=== PATIENT | female | born 1950 | race Hispanic/Latino ===

== ENCOUNTER 2020-10-26 13:09 | Inpatient (IN) | payer OTHER ==
[~2020-10-26] VITALS: Ht 172.7 cm; Wt 86.2 kg
[2020-10-26 13:23] VITALS: BP 129/50
[2020-10-26 13:37] LABS: BASOPHILS % (AUTO) 0.1 % (0.0-5.0); LYMPHOCYTES % (AUTO) 6.5 % (21.0-51.0); MEAN CORPUSCULAR HEMOGLOBIN 29.2 pg (27.0-33.0); MEAN CORPUSCULAR HGB CONC 34.1 g/dL (32.0-36.0); MEAN CORPUSCULAR VOLUME 85.8 fL (79-99); MONOCYTES % (AUTO) 3.5 % (3.0-13.0); NEUTROPHILS % (AUTO) 89.1 % (40.0-77.0); PLATELET COUNT (AUTO) 157 K/uL (130-400); RED BLOOD CELL COUNT(AUTO) 4.31 MIL/uL (4.00-5.50); RED CELL DISTRIBUTION WIDTH 13.4 % (11.0-15.5); WHITE BLOOD COUNT (AUTO) 9.2 K/uL (4.8-10.8)
[2020-10-26 13:56] LABS: CARBON DIOXIDE 22 mmol/L (21-32); CHLORIDE 99 mmol/L (101-111); CREATININE 1.4 mg/dL (0.5-1.5); GLOMERULAR FILTR. RATE CALC 40 mL/min (>60); GLUCOSE,RANDOM 148 mg/dL (70-105); POTASSIUM 3.9 mmol/L (3.5-5.1); SODIUM SERUM 134 mmol/L (136-145); UREA NITROGEN, BLOOD 24 mg/dL (7-18)
[2020-10-26] MEDS: ALBUTEROL INHALER 90MCG/INH IH SCH ×2 (14:00→19:50)
[2020-10-26] MEDS ORDERED: SOLU-MEDROL 125MG VIAL IVP ONE (14:00)
[2020-10-26] MEDS ORDERED: FAMOTIDINE 20MG VIAL IV ONE ×2 (14:00→17:26)
[2020-10-26 14:08] LABS: ALANINE AMINOTRANSFERASE 21 U/L (12-78); ALBUMIN 2.4 g/dL (3.5-5.0); ASPARTATE AMINOTRANSFERASE 29 U/L (10-37); BILIRUBIN,TOTAL 0.8 mg/dL (0.2-1.0); CREATINE KINASE, TOTAL 93 U/L (21-232); MYOGLOBIN 118 ng/mL (10-92); TOTAL PROTEIN, SERUM 7.7 g/dL (6.0-8.3); TROPONIN I < 0.04 ng/mL (0.00-0.06)
[2020-10-26 14:21] VITALS: BP 125/50
[2020-10-26] MEDS: AZITHROMYCIN 500MG VIAL IVPB SCH (17:00)
[2020-10-26] MEDS: 0.9% NACL 250ML IVPB SCH (17:00)
[2020-10-26 17:18] VITALS: BP 116/57
[2020-10-26] MEDS ORDERED: SOLU-MEDROL 125MG VIAL ONE (17:25)
[2020-10-26] MEDS ORDERED: AZITHROMYCIN 500MG+NS 250ML 250 ML IV ONE (17:25)
[2020-10-26] MEDS ORDERED: ENOXAPARIN SODIUM 100 MG/1 ML SQ ONE (17:25)
[2020-10-26 17:48] VITALS: BP 129/48
[2020-10-26] MEDS: ENOXAPARIN SODIUM 100 MG/1 ML SQ SCH (19:50)
[2020-10-26 20:24] VITALS: BP 128/55
[2020-10-26 23:48] VITALS: BP 112/57
[2020-10-27] VITALS (9 sets, daily range): BP systolic 116–127; BP diastolic 51–66
[2020-10-27] MEDS: ALBUTEROL INHALER 90MCG/INH IH SCH ×4 (02:00→20:21)
[2020-10-27] MEDS ORDERED: NITROGLYCERIN 0.4 MG SL TAB SL PRN (06:00)
[2020-10-27] MEDS ORDERED: SOLU-MEDROL 125MG VIAL IV SCH (06:00)
[2020-10-27] MEDS ORDERED: ACETAMINOPHEN 325 MG TAB PO PRN (06:00)
[2020-10-27] MEDS ORDERED: LEVOFLOXACIN 500 MG/D5W 100 ML 100 ML IV SCH ×2 (06:00→07:00)
[2020-10-27] MEDS ORDERED: ONDANSETRON 4MG INJ IV PRN (06:00)
[2020-10-27] MEDS ORDERED: MAG/ALUM/SIMETH 30 ML UDCUP PO PRN (06:00)
[2020-10-27] MEDS ORDERED: LACTULOSE 20 GM/30 ML UDCUP PO PRN (06:00)
[2020-10-27 06:38] LABS: ABG OXYGEN SATURATION 92.4 % (95.0-99.0); ABG PCO2 27 mmHg (32-45)
[2020-10-27] MEDS: DOXYCYCLINE 100MG+NS 250ML IV SCH ×2 (06:46→18:00)
[2020-10-27] MEDS ORDERED: FUROSEMIDE 20MG VIAL IV SCH (08:30)
[2020-10-27 08:33] LABS: HEMATOCRIT 34.4 % (36-48); MEAN CORPUSCULAR HEMOGLOBIN 28.9 pg (27.0-33.0); MEAN CORPUSCULAR HGB CONC 33.1 g/dL (32.0-36.0); MEAN CORPUSCULAR VOLUME 87.1 fL (79-99); RED BLOOD CELL COUNT(AUTO) 3.95 MIL/uL (4.00-5.50); RED CELL DISTRIBUTION WIDTH 13.3 % (11.0-15.5); WHITE BLOOD COUNT (AUTO) 7.4 K/uL (4.8-10.8)
[2020-10-27 08:39] LABS: CARBON DIOXIDE 23 mmol/L (21-32); CHLORIDE 99 mmol/L (101-111); CREATININE 1.4 mg/dL (0.5-1.5); GLOMERULAR FILTR. RATE CALC 40 mL/min (>60); GLUCOSE,RANDOM 210 mg/dL (70-105); POTASSIUM 4.3 mmol/L (3.5-5.1); SODIUM SERUM 135 mmol/L (136-145); UREA NITROGEN, BLOOD 35 mg/dL (7-18)
[2020-10-27 08:48] LABS: AMMONIA < 3 umol/L (11-32); CREATINE KINASE, TOTAL 96 U/L (21-232); PHOSPHORUS 4.5 mg/dL (2.5-4.9)
[2020-10-27] MEDS: FAMOTIDINE 20MG VIAL IV SCH (09:43)
[2020-10-27] MEDS: BENZONATATE 100 MG CAPSULE PO SCH ×3 (09:43→21:38)
[2020-10-27] MEDS: ENOXAPARIN SODIUM 100 MG/1 ML SQ SCH ×2 (09:44→21:39)
[2020-10-27] MEDS ORDERED: PHARMACY COMMUNICATION MISC SCH ×2 (10:30)
[2020-10-27] MEDS ORDERED: LISI40TA9 PO (11:37)
[2020-10-27] MEDS ORDERED: HYDR200T4 PO (11:37)
[2020-10-27] MEDS ORDERED: ESCI-8 PO (11:37)
[2020-10-27] MEDS ORDERED: OMEP40CA21 PO (11:37)
[2020-10-27] MEDS ORDERED: HYDR25TA PO (11:37)
[2020-10-27] MEDS ORDERED: LACT10SO76 PO (11:37)
[2020-10-27] MEDS ORDERED: LINA290C PO (11:37)
[2020-10-27] MEDS ORDERED: RIFA550T PO (11:37)
[2020-10-27] MEDS ORDERED: GABA300C PO ×2 (11:37)
[2020-10-27 13:41] LABS: APPEARANCE,URINE Cloudy (CLEAR); BILIRUBIN,URINE Negative (NEGATIVE); COLOR,URINE Yellow (YELLOW); GLUCOSE, URINE (UA) TRACE mg/dL (NEGATIVE); KETONES,URINE Negative (NEGATIVE); LEUKOCYTE ESTERASE ,URINE Negative (NEGATIVE); NITRATE,URINE Negative (NEGATIVE); OCCULT BLOOD,URINE Negative (NEGATIVE); PROTEIN,URINE Negative (NEGATIVE); UROBILINOGEN,URINE 0.2 mg/dL (0.2-1.0)
[2020-10-27] MEDS ORDERED: FENOFIBRATE NANOCRYSTALLIZED 145 MG TAB PO SCH (13:55)
[2020-10-27 14:08] LABS: BACTERIA,URINE Rare /HPF (None Seen); MUCUS,URINE Rare LPF (None Seen); RBC,URINE 0-1 /HPF (0-1); SQUAMOUS EPITHELIAL CELL,UR Rare /HPF (0-2); WBC,URINE 0-1 /HPF (0-1)
[2020-10-27] MEDS: 0.9% NACL 250ML IVPB SCH (14:43)
[2020-10-27] MEDS: AZITHROMYCIN 500MG VIAL IVPB SCH (14:43)
[2020-10-27] MEDS: SOLU-MEDROL 125MG VIAL IV SCH ×2 (14:46→21:38)
[2020-10-27] MEDS ORDERED: REMDESIVIR (EUA) 520 200 MG in 0.9% NACL 250ML 250 ML IV ONE (15:00)
[2020-10-27] MEDS ORDERED: COMPOUND IV REFRIGERATED 1 EACH IVSOLN MISC PRN (15:00)
[2020-10-28] MEDS: ALBUTEROL INHALER 90MCG/INH IH SCH ×4 (01:24→20:28)
[2020-10-28 04:00] VITALS: BP 129/72
[2020-10-28 04:27] LABS: ABG BASE EXCESS -3.1 mmol/L (-2.0-3.0); ABG HCO3 19.3 mmol/L (21.0-28.0); ABG OXYGEN SATURATION 86.5 % (95.0-99.0); ABG PCO2 27 mmHg (32-45)
[2020-10-28 04:43] LABS: HEMATOCRIT 33.8 % (36-48); LYMPHOCYTES % (AUTO) 4.4 % (21.0-51.0); MEAN CORPUSCULAR HEMOGLOBIN 28.8 pg (27.0-33.0); MEAN CORPUSCULAR HGB CONC 33.4 g/dL (32.0-36.0); MONOCYTES % (AUTO) 3.2 % (3.0-13.0); NEUTROPHILS % (AUTO) 91.9 % (40.0-77.0); PLATELET COUNT (AUTO) 187 K/uL (130-400); RED BLOOD CELL COUNT(AUTO) 3.93 MIL/uL (4.00-5.50); RED CELL DISTRIBUTION WIDTH 13.3 % (11.0-15.5); WHITE BLOOD COUNT (AUTO) 8.5 K/uL (4.8-10.8)
[2020-10-28] MEDS: SOLU-MEDROL 125MG VIAL IV SCH ×3 (05:01→21:37)
[2020-10-28] MEDS: DOXYCYCLINE 100MG+NS 250ML IV SCH ×2 (05:01→17:24)
[2020-10-28 05:09] LABS: ALBUMIN 2.2 g/dL (3.5-5.0); BILIRUBIN,TOTAL 0.4 mg/dL (0.2-1.0); CREATININE 1.5 mg/dL (0.5-1.5); CRP QUANTITATIVE 142.8 mg/L (0.00-9.0); MAGNESIUM 2.3 mg/dL (1.80-2.40); POTASSIUM 3.7 mmol/L (3.5-5.1); TOTAL PROTEIN, SERUM 7.1 g/dL (6.0-8.3)
[2020-10-28] MEDS: REMDESIVIR LABS MISC SCH (05:15)
[2020-10-28] MEDS ORDERED: LEVOFLOXACIN 250 MG/D5W 50ML 50 ML IVPB SCH (07:30)
[2020-10-28 08:09] VITALS: BP 145/73
[2020-10-28] MEDS: BARICITINIB (EUA) 2 MG TABLET PO SCH (09:14)
[2020-10-28] MEDS: BENZONATATE 100 MG CAPSULE PO SCH ×3 (09:14→20:28)
[2020-10-28] MEDS: FENOFIBRATE NANOCRYSTALLIZED 145 MG TAB PO SCH (09:14)
[2020-10-28] MEDS: FAMOTIDINE 20MG VIAL IV SCH (09:15)
[2020-10-28] MEDS: ENOXAPARIN SODIUM 100 MG/1 ML SQ SCH ×2 (09:15→20:29)
[2020-10-28] MEDS: ACETAMINOPHEN 325 MG TAB PO PRN ×3 (11:09→12:13)
[2020-10-28 11:34] VITALS: BP 137/71
[2020-10-28] MEDS: LEVOFLOXACIN 250 MG/D5W 50ML 50 ML IVPB SCH (12:26)
[2020-10-28] MEDS: REMDESIVIR (EUA) 520 100 MG in 0.9% NACL 250ML 250 ML IV SCH (14:28)
[2020-10-28] MEDS: 0.9% NACL 250ML IVPB SCH (14:28)
[2020-10-28] MEDS ORDERED: AZITHROMYCIN 500MG+NS 250ML 250 ML IV ONE (15:31)
[2020-10-28] MEDS: DIAZEPAM 5 MG TABLET PO PRN (15:56)
[2020-10-28] MEDS: AZITHROMYCIN 500MG VIAL IVPB SCH (15:56)
[2020-10-28 16:32] VITALS: BP 142/77
[2020-10-28] MEDS: Escitalopram Oxalate 10 MG PO SCH (17:00)
[2020-10-28 20:00] VITALS: BP 148/75
[2020-10-28] MEDS: GABAPENTIN 300 MG CAPSULE PO SCH (20:28)
[2020-10-28] MEDS: RIFAXIMIN 550 MG TABLET PO SCH (20:28)
[2020-10-28] MEDS: INSULIN GLARGINE 100 UNITS/ML 10 ML VIAL SQ SCH (20:39)
[2020-10-28] MEDS ORDERED: LACTULOSE 10 GM PO SCH (21:00)
[2020-10-28 23:55] VITALS: BP 135/65
[2020-10-29] VITALS (10 sets, daily range): BP systolic 115–137; BP diastolic 56–76
[2020-10-29] MEDS: ALBUTEROL INHALER 90MCG/INH IH SCH ×4 (01:41→21:06)
[2020-10-29 05:19] LABS: BASOPHILS % (AUTO) 0.1 % (0.0-5.0); HEMATOCRIT 37.3 % (36-48); LYMPHOCYTES % (AUTO) 4.2 % (21.0-51.0); MEAN CORPUSCULAR HEMOGLOBIN 28.6 pg (27.0-33.0); MEAN CORPUSCULAR HGB CONC 32.4 g/dL (32.0-36.0); MEAN CORPUSCULAR VOLUME 88.2 fL (79-99); MONOCYTES % (AUTO) 2.9 % (3.0-13.0); NEUTROPHILS % (AUTO) 91.9 % (40.0-77.0); PLATELET COUNT (AUTO) 186 K/uL (130-400); RED BLOOD CELL COUNT(AUTO) 4.23 MIL/uL (4.00-5.50); RED CELL DISTRIBUTION WIDTH 13.7 % (11.0-15.5); WHITE BLOOD COUNT (AUTO) 7.9 K/uL (4.8-10.8)
[2020-10-29 05:41] LABS: ALBUMIN 2.1 g/dL (3.5-5.0); BILIRUBIN,TOTAL 0.3 mg/dL (0.2-1.0); CREATININE 1.3 mg/dL (0.5-1.5); POTASSIUM 3.9 mmol/L (3.5-5.1); TOTAL PROTEIN, SERUM 6.9 g/dL (6.0-8.3)
[2020-10-29] MEDS: SOLU-MEDROL 125MG VIAL IV SCH (05:45)
[2020-10-29] MEDS: DOXYCYCLINE 100MG+NS 250ML IV SCH ×2 (05:45→18:58)
[2020-10-29] MEDS: REMDESIVIR LABS MISC SCH (06:00)
[2020-10-29 06:07] LABS: HEMOGLOBIN A1C 6.8 % (4.0-6.0)
[2020-10-29] MEDS ORDERED: HYDROXYCHLOROQUINE SULFATE 200 MG TAB PO SCH (09:00)
[2020-10-29] MEDS: GABAPENTIN 300 MG CAPSULE PO SCH ×2 (09:31→21:00)
[2020-10-29] MEDS: DIAZEPAM 5 MG TABLET PO PRN (09:31)
[2020-10-29] MEDS: LISINOPRIL 40 MG TABLET PO SCH (09:32)
[2020-10-29] MEDS: FENOFIBRATE NANOCRYSTALLIZED 145 MG TAB PO SCH (09:32)
[2020-10-29] MEDS: BARICITINIB (EUA) 2 MG TABLET PO SCH (09:32)
[2020-10-29] MEDS: RIFAXIMIN 550 MG TABLET PO SCH ×2 (09:32→21:06)
[2020-10-29] MEDS: FAMOTIDINE 20MG VIAL IV SCH (09:32)
[2020-10-29] MEDS: BENZONATATE 100 MG CAPSULE PO SCH ×3 (09:32→21:06)
[2020-10-29] MEDS: ENOXAPARIN SODIUM 100 MG/1 ML SQ SCH ×2 (09:33→21:07)
[2020-10-29] MEDS: LEVOFLOXACIN 250 MG/D5W 50ML 50 ML IVPB SCH (11:52)
[2020-10-29] MEDS ORDERED: AZITHROMYCIN 500MG+NS 250ML 250 ML IV ONE (12:56)
[2020-10-29] MEDS: AZITHROMYCIN 500MG VIAL IVPB SCH (13:11)
[2020-10-29] MEDS: SOLU-MEDROL 125MG VIAL IVP SCH ×2 (13:12→21:06)
[2020-10-29] MEDS: 0.9% NACL 250ML IVPB SCH (13:13)
[2020-10-29] MEDS: REMDESIVIR (EUA) 520 100 MG in 0.9% NACL 250ML 250 ML IV SCH (14:57)
[2020-10-29] MEDS ORDERED: DEXMEDETOMIDINE 400MCG/NS100ML IV SCH (15:30)
[2020-10-29] MEDS: DEXMEDETOMIDINE HCL 400 MCG in 0.9%NACL 100ML 100 ML IV SCH (16:16)
[2020-10-29] MEDS: Escitalopram Oxalate 10 MG PO SCH (17:00)
[2020-10-29] MEDS: INSULIN GLARGINE 100 UNITS/ML 10 ML VIAL SQ SCH (21:00)
[2020-10-30] VITALS (29 sets, daily range): BP systolic 102–137; BP diastolic 46–75
[2020-10-30] MEDS: ALBUTEROL INHALER 90MCG/INH IH SCH ×4 (02:17→20:04)
[2020-10-30 05:01] LABS: BASOPHILS % (AUTO) 0.1 % (0.0-5.0); HEMATOCRIT 35.6 % (36-48); LYMPHOCYTES % (AUTO) 4.9 % (21.0-51.0); MEAN CORPUSCULAR HEMOGLOBIN 29.2 pg (27.0-33.0); MEAN CORPUSCULAR HGB CONC 33.4 g/dL (32.0-36.0); MEAN CORPUSCULAR VOLUME 87.5 fL (79-99); MONOCYTES % (AUTO) 2.6 % (3.0-13.0); NEUTROPHILS % (AUTO) 91.5 % (40.0-77.0); PLATELET COUNT (AUTO) 162 K/uL (130-400); RED BLOOD CELL COUNT(AUTO) 4.07 MIL/uL (4.00-5.50); RED CELL DISTRIBUTION WIDTH 13.9 % (11.0-15.5); WHITE BLOOD COUNT (AUTO) 6.9 K/uL (4.8-10.8)
[2020-10-30 05:17] LABS: ALBUMIN 1.9 g/dL (3.5-5.0); BILIRUBIN,TOTAL 0.4 mg/dL (0.2-1.0); CREATININE 1.2 mg/dL (0.5-1.5); CRP QUANTITATIVE 58.5 mg/L (0.00-9.0); POTASSIUM 4.5 mmol/L (3.5-5.1); TOTAL PROTEIN, SERUM 6.3 g/dL (6.0-8.3)
[2020-10-30] MEDS: DOXYCYCLINE 100MG+NS 250ML IV SCH ×2 (05:55→17:16)
[2020-10-30] MEDS: SOLU-MEDROL 125MG VIAL IVP SCH ×3 (05:55→20:04)
[2020-10-30] MEDS: REMDESIVIR LABS MISC SCH (05:58)
[2020-10-30] MEDS: FAMOTIDINE 20MG VIAL IV SCH (08:01)
[2020-10-30] MEDS: GABAPENTIN 300 MG CAPSULE PO SCH ×2 (08:02→20:04)
[2020-10-30] MEDS: FENOFIBRATE NANOCRYSTALLIZED 145 MG TAB PO SCH (08:02)
[2020-10-30] MEDS: LISINOPRIL 40 MG TABLET PO SCH (08:02)
[2020-10-30] MEDS: BENZONATATE 100 MG CAPSULE PO SCH ×3 (08:02→20:04)
[2020-10-30] MEDS: RIFAXIMIN 550 MG TABLET PO SCH ×2 (08:02→20:04)
[2020-10-30] MEDS: BARICITINIB (EUA) 2 MG TABLET PO SCH (08:02)
[2020-10-30] MEDS: ENOXAPARIN SODIUM 100 MG/1 ML SQ SCH ×2 (08:03→20:04)
[2020-10-30] MEDS: INSULIN GLARGINE 100 UNITS/ML 10 ML VIAL SQ SCH ×2 (09:23→21:07)
[2020-10-30] MEDS: LEVOFLOXACIN 250 MG/D5W 50ML 50 ML IVPB SCH (09:43)
[2020-10-30] MEDS: INSULIN HUMULIN R 100 UNIT/ML 3ML SQ SCH ×3 (11:39→21:07)
[2020-10-30] MEDS ORDERED: AZITHROMYCIN 500MG+NS 250ML 250 ML IV ONE (13:26)
[2020-10-30] MEDS: 0.9% NACL 250ML IVPB SCH (13:29)
[2020-10-30] MEDS: AZITHROMYCIN 500MG VIAL IVPB SCH (13:29)
[2020-10-30] MEDS: REMDESIVIR (EUA) 520 100 MG in 0.9% NACL 250ML 250 ML IV SCH (14:58)
[2020-10-30] MEDS ORDERED: DEXMEDETOMIDINE 400MCG/NS100ML IV ONE (15:01)
[2020-10-30] MEDS: Escitalopram Oxalate 10 MG PO SCH (15:38)
[2020-10-31] VITALS (16 sets, daily range): BP systolic 132–152; BP diastolic 60–80
[2020-10-31] MEDS: ZOLPIDEM TARTRATE 5 MG TAB PO PRN (02:14)
[2020-10-31] MEDS: ALBUTEROL INHALER 90MCG/INH IH SCH ×3 (02:14→21:44)
[2020-10-31 04:39] LABS: CREATININE 1.1 mg/dL (0.5-1.5); CRP QUANTITATIVE 45.8 mg/L (0.00-9.0); POTASSIUM 4.5 mmol/L (3.5-5.1)
[2020-10-31] MEDS: SOLU-MEDROL 125MG VIAL IVP SCH ×3 (05:23→21:44)
[2020-10-31] MEDS: DOXYCYCLINE 100MG+NS 250ML IV SCH ×2 (05:23→17:27)
[2020-10-31] MEDS: REMDESIVIR LABS MISC SCH (05:30)
[2020-10-31] MEDS: INSULIN HUMULIN R 100 UNIT/ML 3ML SQ SCH ×4 (05:30→21:00)
[2020-10-31] MEDS: FENOFIBRATE NANOCRYSTALLIZED 145 MG TAB PO SCH (08:02)
[2020-10-31] MEDS: LISINOPRIL 40 MG TABLET PO SCH (08:02)
[2020-10-31] MEDS: FAMOTIDINE 20MG VIAL IV SCH (08:02)
[2020-10-31] MEDS: GABAPENTIN 300 MG CAPSULE PO SCH ×2 (08:03→21:44)
[2020-10-31] MEDS: ENOXAPARIN SODIUM 100 MG/1 ML SQ SCH ×2 (08:04→21:54)
[2020-10-31] MEDS: INSULIN GLARGINE 100 UNITS/ML 10 ML VIAL SQ SCH ×2 (08:05→21:00)
[2020-10-31] MEDS: BENZONATATE 100 MG CAPSULE PO SCH ×3 (08:08→21:44)
[2020-10-31] MEDS: RIFAXIMIN 550 MG TABLET PO SCH ×2 (08:08→21:44)
[2020-10-31] MEDS ORDERED: DEXMEDETOMIDINE 400MCG/NS100ML IV ONE ×2 (12:07→17:30)
[2020-10-31] MEDS: 0.9% NACL 250ML IVPB SCH (12:19)
[2020-10-31] MEDS: LEVOFLOXACIN 250 MG/D5W 50ML 50 ML IVPB SCH (12:32)
[2020-10-31] MEDS: AZITHROMYCIN 500MG VIAL IVPB SCH (14:00)
[2020-10-31] MEDS: REMDESIVIR (EUA) 520 100 MG in 0.9% NACL 250ML 250 ML IV SCH (15:00)
[2020-10-31] MEDS: Escitalopram Oxalate 10 MG PO SCH (17:00)
[2020-10-31] MEDS: BARICITINIB (EUA) 2 MG TABLET PO SCH (17:25)
[2020-11-01] VITALS (23 sets, daily range): BP systolic 111–153; BP diastolic 55–87
[2020-11-01] MEDS ORDERED: DEXMEDETOMIDINE 400MCG/NS100ML IV ONE (01:07)
[2020-11-01] MEDS: ALBUTEROL INHALER 90MCG/INH IH SCH ×4 (02:19→20:00)
[2020-11-01 03:48] LABS: ABG HCO3 22.2 mmol/L (21.0-28.0); ABG PCO2 36 mmHg (32-45)
[2020-11-01 04:39] LABS: HEMATOCRIT 38.3 % (36-48); MEAN CORPUSCULAR HEMOGLOBIN 28.3 pg (27.0-33.0); MEAN CORPUSCULAR HGB CONC 32.6 g/dL (32.0-36.0); MEAN CORPUSCULAR VOLUME 86.7 fL (79-99); RED BLOOD CELL COUNT(AUTO) 4.42 MIL/uL (4.00-5.50); RED CELL DISTRIBUTION WIDTH 13.9 % (11.0-15.5)
[2020-11-01 04:49] LABS: CREATININE 1.2 mg/dL (0.5-1.5); CRP QUANTITATIVE 47.3 mg/L (0.00-9.0); POTASSIUM 4.6 mmol/L (3.5-5.1)
[2020-11-01] MEDS: SOLU-MEDROL 125MG VIAL IVP SCH ×3 (05:32→21:41)
[2020-11-01] MEDS: INSULIN HUMULIN R 100 UNIT/ML 3ML SQ SCH ×4 (05:33→19:53)
[2020-11-01] MEDS: DOXYCYCLINE 100MG+NS 250ML IV SCH ×2 (05:43→17:26)
[2020-11-01] MEDS: LISINOPRIL 40 MG TABLET PO SCH (08:09)
[2020-11-01] MEDS: BENZONATATE 100 MG CAPSULE PO SCH ×3 (08:10→21:32)
[2020-11-01] MEDS: RIFAXIMIN 550 MG TABLET PO SCH ×2 (08:10→21:31)
[2020-11-01] MEDS: FAMOTIDINE 20MG TAB PO SCH (08:10)
[2020-11-01] MEDS: GABAPENTIN 300 MG CAPSULE PO SCH ×2 (08:10→21:32)
[2020-11-01] MEDS: FENOFIBRATE NANOCRYSTALLIZED 145 MG TAB PO SCH (08:10)
[2020-11-01] MEDS: ENOXAPARIN SODIUM 100 MG/1 ML SQ SCH ×2 (08:11→21:31)
[2020-11-01] MEDS: INSULIN GLARGINE 100 UNITS/ML 10 ML VIAL SQ SCH ×2 (08:26→21:45)
[2020-11-01] MEDS: LEVOFLOXACIN 250 MG/D5W 50ML 50 ML IVPB SCH (09:31)
[2020-11-01] MEDS: BARICITINIB (EUA) 2 MG TABLET PO SCH (09:40)
[2020-11-01] MEDS: 0.9% NACL 250ML IVPB SCH (13:44)
[2020-11-01] MEDS: AZITHROMYCIN 500MG VIAL IVPB SCH (13:44)
[2020-11-01] MEDS: DEXMEDETOMIDINE HCL 400 MCG in 0.9%NACL 100ML 100 ML IV SCH (13:47)
[2020-11-01] MEDS: Escitalopram Oxalate 10 MG PO SCH (16:21)
[2020-11-02] VITALS (21 sets, daily range): BP systolic 97–161; BP diastolic 52–79
[2020-11-02] MEDS: ALBUTEROL INHALER 90MCG/INH IH SCH ×4 (02:00→19:53)
[2020-11-02 03:34] LABS: HEMATOCRIT 38.7 % (36-48); MEAN CORPUSCULAR HEMOGLOBIN 29.1 pg (27.0-33.0); MEAN CORPUSCULAR HGB CONC 33.1 g/dL (32.0-36.0); RED BLOOD CELL COUNT(AUTO) 4.4 MIL/uL (4.00-5.50); RED CELL DISTRIBUTION WIDTH 14.1 % (11.0-15.5); WHITE BLOOD COUNT (AUTO) 5.2 K/uL (4.8-10.8)
[2020-11-02 03:48] LABS: CREATININE 1.1 mg/dL (0.5-1.5); POTASSIUM 4.3 mmol/L (3.5-5.1)
[2020-11-02] MEDS: SOLU-MEDROL 125MG VIAL IVP SCH ×3 (04:06→19:32)
[2020-11-02] MEDS: DOXYCYCLINE 100MG+NS 250ML IV SCH ×2 (06:37→17:35)
[2020-11-02] MEDS: INSULIN HUMULIN R 100 UNIT/ML 3ML SQ SCH ×4 (06:45→20:37)
[2020-11-02 08:00] LABS: ABG BASE EXCESS -3.4 mmol/L (-2.0-3.0); ABG HCO3 19.4 mmol/L (21.0-28.0); ABG OXYGEN SATURATION 91.4 % (95.0-99.0); ABG PCO2 30 mmHg (32-45)
[2020-11-02] MEDS: FAMOTIDINE 20MG TAB PO SCH (08:45)
[2020-11-02] MEDS: RIFAXIMIN 550 MG TABLET PO SCH ×2 (08:45→20:27)
[2020-11-02] MEDS: BARICITINIB (EUA) 2 MG TABLET PO SCH (08:45)
[2020-11-02] MEDS: GABAPENTIN 300 MG CAPSULE PO SCH ×2 (08:45→20:21)
[2020-11-02] MEDS: BENZONATATE 100 MG CAPSULE PO SCH ×3 (08:45→20:21)
[2020-11-02] MEDS: FENOFIBRATE NANOCRYSTALLIZED 145 MG TAB PO SCH (08:45)
[2020-11-02] MEDS: LISINOPRIL 40 MG TABLET PO SCH (08:45)
[2020-11-02] MEDS: ENOXAPARIN SODIUM 100 MG/1 ML SQ SCH ×2 (08:46→20:29)
[2020-11-02] MEDS: INSULIN GLARGINE 100 UNITS/ML 10 ML VIAL SQ SCH ×2 (08:47→20:28)
[2020-11-02] MEDS: LEVOFLOXACIN 250 MG/D5W 50ML 50 ML IVPB SCH (10:35)
[2020-11-02] MEDS: AZITHROMYCIN 500MG VIAL IVPB SCH (13:22)
[2020-11-02] MEDS: 0.9% NACL 250ML IVPB SCH (13:22)
[2020-11-02] MEDS: DEXMEDETOMIDINE 400MCG/NS100ML IV SCH (15:47)
[2020-11-02] MEDS: Escitalopram Oxalate 10 MG PO SCH (16:43)
[2020-11-03] VITALS (22 sets, daily range): BP systolic 107–146; BP diastolic 45–87
[2020-11-03] MEDS: ALBUTEROL INHALER 90MCG/INH IH SCH ×4 (02:00→20:50)
[2020-11-03] MEDS: SOLU-MEDROL 125MG VIAL IVP SCH ×3 (03:06→20:50)
[2020-11-03 04:05] LABS: HEMATOCRIT 40.8 % (36-48); MEAN CORPUSCULAR HEMOGLOBIN 28.4 pg (27.0-33.0); MEAN CORPUSCULAR HGB CONC 32.8 g/dL (32.0-36.0); MEAN CORPUSCULAR VOLUME 86.4 fL (79-99); RED BLOOD CELL COUNT(AUTO) 4.72 MIL/uL (4.00-5.50); RED CELL DISTRIBUTION WIDTH 14.1 % (11.0-15.5); WHITE BLOOD COUNT (AUTO) 5.9 K/uL (4.8-10.8)
[2020-11-03 04:19] LABS: POTASSIUM 4.8 mmol/L (3.5-5.1)
[2020-11-03] MEDS: DEXMEDETOMIDINE 400MCG/NS100ML IV SCH (04:28)
[2020-11-03] MEDS: INSULIN HUMULIN R 100 UNIT/ML 3ML SQ SCH ×4 (05:32→20:51)
[2020-11-03] MEDS: BENZONATATE 100 MG CAPSULE PO SCH ×3 (09:04→20:50)
[2020-11-03] MEDS: LISINOPRIL 40 MG TABLET PO SCH (09:05)
[2020-11-03] MEDS: BARICITINIB (EUA) 2 MG TABLET PO SCH (09:05)
[2020-11-03] MEDS: FENOFIBRATE NANOCRYSTALLIZED 145 MG TAB PO SCH (09:05)
[2020-11-03] MEDS: RIFAXIMIN 550 MG TABLET PO SCH ×2 (09:05→20:50)
[2020-11-03] MEDS: GABAPENTIN 300 MG CAPSULE PO SCH ×2 (09:06→20:50)
[2020-11-03] MEDS: FAMOTIDINE 20MG TAB PO SCH (09:06)
[2020-11-03] MEDS: ENOXAPARIN SODIUM 100 MG/1 ML SQ SCH ×2 (09:11→20:51)
[2020-11-03] MEDS: INSULIN GLARGINE 100 UNITS/ML 10 ML VIAL SQ SCH ×2 (09:57→20:51)
[2020-11-03] MEDS: 0.9% NACL 250ML IVPB SCH (14:00)
[2020-11-03] MEDS: DIAZEPAM 5 MG TABLET PO PRN (15:06)
[2020-11-03] MEDS: Escitalopram Oxalate 10 MG PO SCH (18:41)
[2020-11-04] VITALS (16 sets, daily range): BP systolic 113–159; BP diastolic 46–89
[2020-11-04] MEDS: ZOLPIDEM TARTRATE 5 MG TAB PO PRN ×2 (00:49→21:32)
[2020-11-04] MEDS: ALBUTEROL INHALER 90MCG/INH IH SCH ×4 (02:00→21:23)
[2020-11-04] MEDS: SOLU-MEDROL 125MG VIAL IVP SCH ×3 (04:00→21:23)
[2020-11-04 04:36] LABS: HEMATOCRIT 42.1 % (36-48); MEAN CORPUSCULAR HEMOGLOBIN 28.4 pg (27.0-33.0); MEAN CORPUSCULAR HGB CONC 32.5 g/dL (32.0-36.0); MEAN CORPUSCULAR VOLUME 87.2 fL (79-99); RED BLOOD CELL COUNT(AUTO) 4.83 MIL/uL (4.00-5.50); RED CELL DISTRIBUTION WIDTH 14.1 % (11.0-15.5); WHITE BLOOD COUNT (AUTO) 7.5 K/uL (4.8-10.8)
[2020-11-04 04:44] LABS: CRP QUANTITATIVE 28.2 mg/L (0.00-9.0); POTASSIUM 4.8 mmol/L (3.5-5.1)
[2020-11-04] MEDS: INSULIN HUMULIN R 100 UNIT/ML 3ML SQ SCH ×4 (06:32→21:00)
[2020-11-04] MEDS: ENOXAPARIN SODIUM 100 MG/1 ML SQ SCH ×2 (09:00→21:25)
[2020-11-04] MEDS: FAMOTIDINE 20MG TAB PO SCH (09:40)
[2020-11-04] MEDS: LISINOPRIL 40 MG TABLET PO SCH (09:41)
[2020-11-04] MEDS: FENOFIBRATE NANOCRYSTALLIZED 145 MG TAB PO SCH (09:41)
[2020-11-04] MEDS: BARICITINIB (EUA) 2 MG TABLET PO SCH (09:41)
[2020-11-04] MEDS: GABAPENTIN 300 MG CAPSULE PO SCH ×2 (09:41→21:23)
[2020-11-04] MEDS: RIFAXIMIN 550 MG TABLET PO SCH ×2 (09:41→21:23)
[2020-11-04] MEDS: BENZONATATE 100 MG CAPSULE PO SCH ×3 (09:41→21:23)
[2020-11-04] MEDS: DIAZEPAM 5 MG TABLET PO PRN (09:42)
[2020-11-04] MEDS: INSULIN GLARGINE 100 UNITS/ML 10 ML VIAL SQ SCH ×2 (09:44→21:25)
[2020-11-04] MEDS: 0.9% NACL 250ML IVPB SCH (13:21)
[2020-11-04] MEDS: Escitalopram Oxalate 10 MG PO SCH (17:00)
[2020-11-05] VITALS (23 sets, daily range): BP systolic 99–154; BP diastolic 48–79
[2020-11-05] MEDS: ALBUTEROL INHALER 90MCG/INH IH SCH ×4 (02:52→20:57)
[2020-11-05 04:37] LABS: HEMATOCRIT 41.7 % (36-48); LYMPHOCYTES % (AUTO) 4.8 % (21.0-51.0); MEAN CORPUSCULAR HEMOGLOBIN 28.3 pg (27.0-33.0); MEAN CORPUSCULAR HGB CONC 32.6 g/dL (32.0-36.0); MEAN CORPUSCULAR VOLUME 86.9 fL (79-99); MONOCYTES % (AUTO) 4.3 % (3.0-13.0); NEUTROPHILS % (AUTO) 90.6 % (40.0-77.0); PLATELET COUNT (AUTO) 82 K/uL (130-400); RED CELL DISTRIBUTION WIDTH 14.1 % (11.0-15.5); WHITE BLOOD COUNT (AUTO) 7.1 K/uL (4.8-10.8)
[2020-11-05 05:02] LABS: BILIRUBIN,TOTAL 0.6 mg/dL (0.2-1.0); CREATININE 0.9 mg/dL (0.5-1.5); CRP QUANTITATIVE 24.9 mg/L (0.00-9.0); POTASSIUM 4.8 mmol/L (3.5-5.1)
[2020-11-05] MEDS: SOLU-MEDROL 125MG VIAL IVP SCH ×3 (05:44→20:57)
[2020-11-05] MEDS: INSULIN HUMULIN R 100 UNIT/ML 3ML SQ SCH ×4 (05:44→20:57)
[2020-11-05] MEDS: BENZONATATE 100 MG CAPSULE PO SCH ×2 (08:41→14:06)
[2020-11-05] MEDS: LISINOPRIL 40 MG TABLET PO SCH (08:41)
[2020-11-05] MEDS: BARICITINIB (EUA) 2 MG TABLET PO SCH (08:41)
[2020-11-05] MEDS: RIFAXIMIN 550 MG TABLET PO SCH ×2 (08:41→20:57)
[2020-11-05] MEDS: FENOFIBRATE NANOCRYSTALLIZED 145 MG TAB PO SCH (08:42)
[2020-11-05] MEDS: GABAPENTIN 300 MG CAPSULE PO SCH ×2 (08:42→20:57)
[2020-11-05] MEDS: ENOXAPARIN SODIUM 100 MG/1 ML SQ SCH (08:42)
[2020-11-05] MEDS: FAMOTIDINE 20MG TAB PO SCH (08:42)
[2020-11-05] MEDS: INSULIN GLARGINE 100 UNITS/ML 10 ML VIAL SQ SCH ×2 (08:43→20:59)
[2020-11-05] MEDS: 0.9% NACL 250ML IVPB SCH (13:31)
[2020-11-05] MEDS: Escitalopram Oxalate 10 MG PO SCH (14:06)
[2020-11-06] VITALS (17 sets, daily range): BP systolic 110–141; BP diastolic 43–84
[2020-11-06] MEDS: ALBUTEROL INHALER 90MCG/INH IH SCH ×4 (02:03→20:47)
[2020-11-06 04:48] LABS: BASOPHILS % (AUTO) 0.1 % (0.0-5.0); HEMATOCRIT 43.3 % (36-48); LYMPHOCYTES % (AUTO) 3.5 % (21.0-51.0); MEAN CORPUSCULAR HEMOGLOBIN 28.2 pg (27.0-33.0); MEAN CORPUSCULAR HGB CONC 31.4 g/dL (32.0-36.0); MEAN CORPUSCULAR VOLUME 89.8 fL (79-99); MONOCYTES % (AUTO) 3.7 % (3.0-13.0); NEUTROPHILS % (AUTO) 92.3 % (40.0-77.0); PLATELET COUNT (AUTO) 74 K/uL (130-400); RED BLOOD CELL COUNT(AUTO) 4.82 MIL/uL (4.00-5.50); RED CELL DISTRIBUTION WIDTH 14.1 % (11.0-15.5); WHITE BLOOD COUNT (AUTO) 11.8 K/uL (4.8-10.8)
[2020-11-06] MEDS: SOLU-MEDROL 125MG VIAL IVP SCH ×3 (04:56→20:47)
[2020-11-06 05:08] LABS: BILIRUBIN,TOTAL 0.6 mg/dL (0.2-1.0); CRP QUANTITATIVE 15.5 mg/L (0.00-9.0); POTASSIUM 5.4 mmol/L (3.5-5.1); TOTAL PROTEIN, SERUM 5.9 g/dL (6.0-8.3)
[2020-11-06] MEDS: INSULIN HUMULIN R 100 UNIT/ML 3ML SQ SCH ×4 (06:29→20:48)
[2020-11-06] MEDS: GABAPENTIN 300 MG CAPSULE PO SCH ×2 (09:47→20:47)
[2020-11-06] MEDS: BARICITINIB (EUA) 2 MG TABLET PO SCH (09:48)
[2020-11-06] MEDS: FENOFIBRATE NANOCRYSTALLIZED 145 MG TAB PO SCH (09:48)
[2020-11-06] MEDS: LISINOPRIL 40 MG TABLET PO SCH (09:48)
[2020-11-06] MEDS: RIFAXIMIN 550 MG TABLET PO SCH ×2 (09:48→20:47)
[2020-11-06] MEDS: FAMOTIDINE 20MG TAB PO SCH (09:48)
[2020-11-06] MEDS: INSULIN GLARGINE 100 UNITS/ML 10 ML VIAL SQ SCH ×2 (09:54→20:48)
[2020-11-06] MEDS: 0.9% NACL 250ML IVPB SCH (14:00)
[2020-11-06] MEDS: Escitalopram Oxalate 10 MG PO SCH (16:58)
[2020-11-06] MEDS: ZOLPIDEM TARTRATE 5 MG TAB PO PRN (20:49)
[2020-11-07] VITALS (22 sets, daily range): BP systolic 98–151; BP diastolic 42–76
[2020-11-07] MEDS: ALBUTEROL INHALER 90MCG/INH IH SCH ×4 (02:18→20:22)
[2020-11-07] MEDS: SOLU-MEDROL 125MG VIAL IVP SCH ×3 (04:00→20:22)
[2020-11-07 04:20] LABS: BASOPHILS % (AUTO) 0.1 % (0.0-5.0); HEMATOCRIT 39.7 % (36-48); LYMPHOCYTES % (AUTO) 3.9 % (21.0-51.0); MEAN CORPUSCULAR HEMOGLOBIN 28.2 pg (27.0-33.0); MEAN CORPUSCULAR HGB CONC 32.5 g/dL (32.0-36.0); MEAN CORPUSCULAR VOLUME 86.7 fL (79-99); MONOCYTES % (AUTO) 3.1 % (3.0-13.0); NEUTROPHILS % (AUTO) 92.4 % (40.0-77.0); PLATELET COUNT (AUTO) 56 K/uL (130-400); RED BLOOD CELL COUNT(AUTO) 4.58 MIL/uL (4.00-5.50); RED CELL DISTRIBUTION WIDTH 14.1 % (11.0-15.5); WHITE BLOOD COUNT (AUTO) 11.4 K/uL (4.8-10.8)
[2020-11-07 04:43] LABS: BILIRUBIN,TOTAL 0.6 mg/dL (0.2-1.0); CREATININE 0.8 mg/dL (0.5-1.5); CRP QUANTITATIVE 7.7 mg/L (0.00-9.0); POTASSIUM 5.2 mmol/L (3.5-5.1); TOTAL PROTEIN, SERUM 5.7 g/dL (6.0-8.3)
[2020-11-07] MEDS: INSULIN HUMULIN R 100 UNIT/ML 3ML SQ SCH ×4 (06:57→20:24)
[2020-11-07] MEDS: LISINOPRIL 40 MG TABLET PO SCH (08:05)
[2020-11-07] MEDS: FENOFIBRATE NANOCRYSTALLIZED 145 MG TAB PO SCH (08:05)
[2020-11-07] MEDS: BARICITINIB (EUA) 2 MG TABLET PO SCH (08:05)
[2020-11-07] MEDS: GABAPENTIN 300 MG CAPSULE PO SCH ×2 (08:06→20:21)
[2020-11-07] MEDS: FAMOTIDINE 20MG TAB PO SCH (08:06)
[2020-11-07] MEDS: RIFAXIMIN 550 MG TABLET PO SCH ×2 (08:06→20:28)
[2020-11-07] MEDS: INSULIN GLARGINE 100 UNITS/ML 10 ML VIAL SQ SCH ×2 (08:07→20:24)
[2020-11-07] MEDS ORDERED: FUROSEMIDE 20MG VIAL IV SCH (12:30)
[2020-11-07] MEDS: 0.9% NACL 250ML IVPB SCH (13:10)
[2020-11-07] MEDS: Escitalopram Oxalate 10 MG PO SCH (15:55)
[2020-11-07] MEDS: BENZONATATE 100 MG CAPSULE PO PRN (20:21)
[2020-11-07] MEDS: ZOLPIDEM TARTRATE 5 MG TAB PO PRN (20:22)
[2020-11-07] MEDS: DIAZEPAM 5 MG TABLET PO PRN (21:24)
[2020-11-08] VITALS (16 sets, daily range): BP systolic 105–119; BP diastolic 39–59
[2020-11-08] MEDS: ALBUTEROL INHALER 90MCG/INH IH SCH ×4 (02:00→20:15)
[2020-11-08] MEDS: SOLU-MEDROL 125MG VIAL IVP SCH ×3 (05:06→20:00)
[2020-11-08 05:38] LABS: BASOPHILS % (AUTO) 0.1 % (0.0-5.0); EOSINOPHILS % (AUTO) 2.1 % (0.0-8.0); HEMATOCRIT 39.8 % (36-48); LYMPHOCYTES % (AUTO) 4.3 % (21.0-51.0); MEAN CORPUSCULAR HGB CONC 31.7 g/dL (32.0-36.0); MEAN CORPUSCULAR VOLUME 88.4 fL (79-99); MONOCYTES % (AUTO) 5.3 % (3.0-13.0); NEUTROPHILS % (AUTO) 87.8 % (40.0-77.0); PLATELET COUNT (AUTO) 49 K/uL (130-400); RED CELL DISTRIBUTION WIDTH 13.8 % (11.0-15.5); WHITE BLOOD COUNT (AUTO) 11.2 K/uL (4.8-10.8)
[2020-11-08] MEDS: INSULIN HUMULIN R 100 UNIT/ML 3ML SQ SCH ×4 (05:42→20:15)
[2020-11-08] MEDS: GABAPENTIN 300 MG CAPSULE PO SCH ×2 (08:07→20:00)
[2020-11-08] MEDS: LISINOPRIL 40 MG TABLET PO SCH (08:07)
[2020-11-08] MEDS: FENOFIBRATE NANOCRYSTALLIZED 145 MG TAB PO SCH (08:08)
[2020-11-08] MEDS: RIFAXIMIN 550 MG TABLET PO SCH ×2 (08:08→19:59)
[2020-11-08] MEDS: FAMOTIDINE 20MG TAB PO SCH (08:08)
[2020-11-08] MEDS: INSULIN GLARGINE 100 UNITS/ML 10 ML VIAL SQ SCH ×2 (08:09→20:14)
[2020-11-08] MEDS: BARICITINIB (EUA) 2 MG TABLET PO SCH (08:50)
[2020-11-08] MEDS: 0.9% NACL 250ML IVPB SCH (13:01)
[2020-11-08] MEDS: Escitalopram Oxalate 10 MG PO SCH (16:16)
[2020-11-08] MEDS: DIAZEPAM 5 MG TABLET PO PRN (20:44)
[2020-11-08] MEDS: ZOLPIDEM TARTRATE 5 MG TAB PO PRN (20:44)
[2020-11-08] MEDS: BENZONATATE 100 MG CAPSULE PO PRN (20:44)
[2020-11-09] VITALS (10 sets, daily range): BP systolic 102–141; BP diastolic 47–72
[2020-11-09] MEDS: SOLU-MEDROL 125MG VIAL IVP SCH ×3 (03:16→20:31)
[2020-11-09] MEDS: ALBUTEROL INHALER 90MCG/INH IH SCH ×4 (03:17→20:31)
[2020-11-09 03:18] LABS: ABG BASE EXCESS 3.8 mmol/L (-2.0-3.0); ABG OXYGEN SATURATION 88.4 % (95.0-99.0); ABG PCO2 41 mmHg (32-45)
[2020-11-09 04:29] LABS: CREATININE 0.9 mg/dL (0.5-1.5); POTASSIUM 5.1 mmol/L (3.5-5.1)
[2020-11-09] MEDS: INSULIN HUMULIN R 100 UNIT/ML 3ML SQ SCH ×4 (07:03→20:28)
[2020-11-09] MEDS: FENOFIBRATE NANOCRYSTALLIZED 145 MG TAB PO SCH (08:57)
[2020-11-09] MEDS: FAMOTIDINE 20MG TAB PO SCH (08:57)
[2020-11-09] MEDS: BARICITINIB (EUA) 2 MG TABLET PO SCH (08:57)
[2020-11-09] MEDS: LISINOPRIL 40 MG TABLET PO SCH (08:58)
[2020-11-09] MEDS: INSULIN GLARGINE 100 UNITS/ML 10 ML VIAL SQ SCH ×2 (08:59→20:27)
[2020-11-09] MEDS: GABAPENTIN 300 MG CAPSULE PO SCH ×2 (08:59→20:30)
[2020-11-09] MEDS: RIFAXIMIN 550 MG TABLET PO SCH (08:59)
[2020-11-09] MEDS ORDERED: DIAZEPAM 5 MG TABLET PO SCH (12:30)
[2020-11-09] MEDS: 0.9% NACL 250ML IVPB SCH (14:00)
[2020-11-09] MEDS: FLUCONAZOLE 400 MG/NS 200 ML 200 ML IV SCH (14:21)
[2020-11-09] MEDS: Escitalopram Oxalate 10 MG PO SCH (16:35)
[2020-11-09] MEDS: DIAZEPAM 5 MG TABLET PO SCH (20:31)
[2020-11-10] MEDS: RIFAXIMIN 550 MG TABLET PO SCH ×3 (02:52→20:20)
[2020-11-10] MEDS: ALBUTEROL INHALER 90MCG/INH IH SCH ×4 (02:52→17:03)
[2020-11-10 04:00] VITALS: BP 128/63
[2020-11-10] MEDS: SOLU-MEDROL 125MG VIAL IVP SCH ×3 (04:35→20:20)
[2020-11-10 04:46] LABS: HEMATOCRIT 41.2 % (36-48); MEAN CORPUSCULAR HEMOGLOBIN 28.3 pg (27.0-33.0); MEAN CORPUSCULAR HGB CONC 31.8 g/dL (32.0-36.0); RED BLOOD CELL COUNT(AUTO) 4.63 MIL/uL (4.00-5.50); RED CELL DISTRIBUTION WIDTH 13.7 % (11.0-15.5); WHITE BLOOD COUNT (AUTO) 12.4 K/uL (4.8-10.8)
[2020-11-10 05:13] LABS: CREATININE 0.8 mg/dL (0.5-1.5); POTASSIUM 5.6 mmol/L (3.5-5.1)
[2020-11-10] MEDS: INSULIN HUMULIN R 100 UNIT/ML 3ML SQ SCH ×4 (06:02→20:22)
[2020-11-10 07:42] LABS: ABG OXYGEN SATURATION 90.7 % (95.0-99.0); ABG PCO2 41 mmHg (32-45)
[2020-11-10 08:05] VITALS: BP 131/61
[2020-11-10] MEDS: INSULIN GLARGINE 100 UNITS/ML 10 ML VIAL SQ SCH ×2 (09:00→20:22)
[2020-11-10] MEDS: FLUCONAZOLE 400 MG/NS 200 ML 200 ML IV SCH (09:00)
[2020-11-10] MEDS: FAMOTIDINE 20MG TAB PO SCH (09:48)
[2020-11-10] MEDS: GABAPENTIN 300 MG CAPSULE PO SCH ×2 (09:48→20:20)
[2020-11-10] MEDS: BARICITINIB (EUA) 2 MG TABLET PO SCH (09:48)
[2020-11-10] MEDS: LISINOPRIL 40 MG TABLET PO SCH (09:49)
[2020-11-10] MEDS: DIAZEPAM 5 MG TABLET PO SCH ×3 (09:49→20:19)
[2020-11-10] MEDS: FENOFIBRATE NANOCRYSTALLIZED 145 MG TAB PO SCH (09:59)
[2020-11-10 11:56] VITALS: BP 133/63
[2020-11-10] MEDS: 0.9% NACL 250ML IVPB SCH (14:00)
[2020-11-10 16:27] VITALS: BP 162/60
[2020-11-10] MEDS: BALSAM PERU/CASTOR OIL 60 GM TUBE TP SCH (16:53)
[2020-11-10] MEDS ORDERED: DIAZEPAM 5 MG TABLET PO ONE (17:00)
[2020-11-10] MEDS ORDERED: DIAZEPAM 5 MG TABLET PO PRN (17:00)
[2020-11-10] MEDS: Escitalopram Oxalate 10 MG PO SCH (17:03)
[2020-11-10 20:00] VITALS: BP 145/70
[2020-11-10] MEDS: BENZONATATE 100 MG CAPSULE PO PRN (20:19)
[2020-11-10] MEDS: ZOLPIDEM TARTRATE 5 MG TAB PO PRN (20:20)
[2020-11-10 23:00] VITALS: BP 110/60
[2020-11-11 03:00] VITALS: BP 140/83
[2020-11-11] MEDS: SOLU-MEDROL 125MG VIAL IVP SCH ×2 (03:13→12:17)
[2020-11-11] MEDS: INSULIN HUMULIN R 100 UNIT/ML 3ML SQ SCH ×4 (05:17→20:12)
[2020-11-11] MEDS: ALBUTEROL INHALER 90MCG/INH IH SCH ×3 (08:00→20:19)
[2020-11-11 08:12] VITALS: BP 135/75
[2020-11-11] MEDS: GABAPENTIN 300 MG CAPSULE PO SCH ×2 (09:13→20:14)
[2020-11-11] MEDS: FAMOTIDINE 20MG TAB PO SCH (09:15)
[2020-11-11] MEDS: FENOFIBRATE NANOCRYSTALLIZED 145 MG TAB PO SCH (09:16)
[2020-11-11] MEDS: DIAZEPAM 5 MG TABLET PO SCH ×3 (09:16→20:13)
[2020-11-11] MEDS: RIFAXIMIN 550 MG TABLET PO SCH ×2 (09:16→20:13)
[2020-11-11] MEDS: LISINOPRIL 40 MG TABLET PO SCH (09:17)
[2020-11-11] MEDS: BALSAM PERU/CASTOR OIL 60 GM TUBE TP SCH ×3 (09:17→20:19)
[2020-11-11] MEDS: INSULIN GLARGINE 100 UNITS/ML 10 ML VIAL SQ SCH ×2 (09:35→20:11)
[2020-11-11 12:22] VITALS: BP 149/73
[2020-11-11] MEDS: 0.9% NACL 250ML IVPB SCH (14:00)
[2020-11-11] MEDS: FLUCONAZOLE 400 MG/NS 200 ML 200 ML IV SCH (14:00)
[2020-11-11 16:01] VITALS: BP 135/58
[2020-11-11] MEDS: Escitalopram Oxalate 10 MG PO SCH (17:00)
[2020-11-11 19:52] VITALS: BP 118/44
[2020-11-11] MEDS: ZOLPIDEM TARTRATE 5 MG TAB PO PRN (20:13)
[2020-11-11] MEDS: BENZONATATE 100 MG CAPSULE PO PRN (20:13)
[2020-11-11] MEDS: SOLU-MEDROL 40MG VIAL IVP SCH (20:19)
[2020-11-11 23:59] VITALS: BP 140/68
[2020-11-12] MEDS: ALBUTEROL INHALER 90MCG/INH IH SCH ×4 (02:00→20:34)
[2020-11-12 03:09] VITALS: BP 136/73
[2020-11-12 04:39] LABS: MEAN CORPUSCULAR HEMOGLOBIN 28.2 pg (27.0-33.0); MEAN CORPUSCULAR HGB CONC 32.3 g/dL (32.0-36.0); MEAN CORPUSCULAR VOLUME 87.5 fL (79-99); RED BLOOD CELL COUNT(AUTO) 4.57 MIL/uL (4.00-5.50); RED CELL DISTRIBUTION WIDTH 13.5 % (11.0-15.5)
[2020-11-12 04:48] LABS: CARBON DIOXIDE 31 mmol/L (21-32); CHLORIDE 104 mmol/L (101-111); CREATININE 0.7 mg/dL (0.5-1.5); GLOMERULAR FILTR. RATE CALC 88 mL/min (>60); GLUCOSE,RANDOM 60 mg/dL (70-105); POTASSIUM 5.4 mmol/L (3.5-5.1); SODIUM SERUM 138 mmol/L (136-145); UREA NITROGEN, BLOOD 41 mg/dL (7-18)
[2020-11-12 04:50] LABS: CRP QUANTITATIVE < 2.00 mg/L (0.00-9.0)
[2020-11-12] MEDS: INSULIN HUMULIN R 100 UNIT/ML 3ML SQ SCH ×4 (05:57→20:42)
[2020-11-12] MEDS ORDERED: SODIUM BICARB 50MEQ 50ML VIAL IV SCH (07:30)
[2020-11-12] MEDS ORDERED: CALCIUM GLUC 1GM VIAL IV SCH (07:30)
[2020-11-12] MEDS ORDERED: CALCIUM GLUC 1GM VIAL 1 GM in 0.9%NACL 100ML 100 ML IV SCH (07:30)
[2020-11-12 08:10] VITALS: BP 106/67
[2020-11-12] MEDS: FENOFIBRATE NANOCRYSTALLIZED 145 MG TAB PO SCH (08:12)
[2020-11-12] MEDS: RIFAXIMIN 550 MG TABLET PO SCH ×2 (08:12→20:33)
[2020-11-12] MEDS: FAMOTIDINE 20MG TAB PO SCH (08:12)
[2020-11-12] MEDS: DIAZEPAM 5 MG TABLET PO SCH ×3 (08:12→20:33)
[2020-11-12] MEDS: SOLU-MEDROL 40MG VIAL IVP SCH ×2 (08:13→20:34)
[2020-11-12] MEDS: GABAPENTIN 300 MG CAPSULE PO SCH ×2 (08:13→20:34)
[2020-11-12] MEDS: BALSAM PERU/CASTOR OIL 60 GM TUBE TP SCH ×3 (08:14→20:34)
[2020-11-12] MEDS: FLUCONAZOLE 400 MG/NS 200 ML 200 ML IV SCH (08:18)
[2020-11-12] MEDS: LISINOPRIL 40 MG TABLET PO SCH (09:00)
[2020-11-12] MEDS: INSULIN GLARGINE 100 UNITS/ML 10 ML VIAL SQ SCH ×2 (11:35→20:41)
[2020-11-12 12:03] VITALS: BP 124/68
[2020-11-12] MEDS: 0.9% NACL 250ML IVPB SCH (14:00)
[2020-11-12 16:00] VITALS: BP 123/75
[2020-11-12] MEDS: Escitalopram Oxalate 10 MG PO SCH (16:44)
[2020-11-12 20:05] VITALS: BP 139/76
[2020-11-12] MEDS ORDERED: NACL NASAL SPRAY 120 SPRAY/BOTTLE NS PRN (20:30)
[2020-11-12] MEDS: ZOLPIDEM TARTRATE 5 MG TAB PO PRN (20:35)
[2020-11-13] VITALS: BP 122/70
[2020-11-13] MEDS: ALBUTEROL INHALER 90MCG/INH IH SCH ×4 (01:14→20:42)
[2020-11-13 04:03] VITALS: BP 128/74
[2020-11-13 05:45] LABS: CREATININE 0.7 mg/dL (0.5-1.5); POTASSIUM 5.1 mmol/L (3.5-5.1)
[2020-11-13] MEDS: INSULIN HUMULIN R 100 UNIT/ML 3ML SQ SCH ×4 (06:17→21:00)
[2020-11-13 08:00] VITALS: BP 160/71
[2020-11-13] MEDS: FENOFIBRATE NANOCRYSTALLIZED 145 MG TAB PO SCH (08:37)
[2020-11-13] MEDS: FAMOTIDINE 20MG TAB PO SCH (08:37)
[2020-11-13] MEDS: RIFAXIMIN 550 MG TABLET PO SCH ×2 (08:37→20:42)
[2020-11-13] MEDS: LISINOPRIL 40 MG TABLET PO SCH (08:38)
[2020-11-13] MEDS: GABAPENTIN 300 MG CAPSULE PO SCH ×2 (08:38→20:42)
[2020-11-13] MEDS: INSULIN GLARGINE 100 UNITS/ML 10 ML VIAL SQ SCH ×2 (08:39→21:01)
[2020-11-13] MEDS: SOLU-MEDROL 40MG VIAL IVP SCH ×2 (08:46→20:42)
[2020-11-13] MEDS: DIAZEPAM 5 MG TABLET PO SCH ×3 (08:46→20:42)
[2020-11-13] MEDS: FLUCONAZOLE 400 MG/NS 200 ML 200 ML IV SCH (08:46)
[2020-11-13] MEDS: BALSAM PERU/CASTOR OIL 60 GM TUBE TP SCH ×3 (09:49→20:43)
[2020-11-13] MEDS: 0.9% NACL 250ML IVPB SCH (11:22)
[2020-11-13 12:00] VITALS: BP 99/63
[2020-11-13 16:00] VITALS: BP 117/50
[2020-11-13] MEDS: Escitalopram Oxalate 10 MG PO SCH (17:38)
[2020-11-13 19:15] VITALS: BP 142/68
[2020-11-13] MEDS: ZOLPIDEM TARTRATE 5 MG TAB PO PRN (20:42)
[2020-11-14] VITALS (7 sets, daily range): BP systolic 109–144; BP diastolic 42–92
[2020-11-14] MEDS: ALBUTEROL INHALER 90MCG/INH IH SCH ×4 (01:37→20:47)
[2020-11-14 04:42] LABS: HEMATOCRIT 38.7 % (36-48); MEAN CORPUSCULAR HEMOGLOBIN 28.2 pg (27.0-33.0); MEAN CORPUSCULAR HGB CONC 31.8 g/dL (32.0-36.0); MEAN CORPUSCULAR VOLUME 88.8 fL (79-99); RED BLOOD CELL COUNT(AUTO) 4.36 MIL/uL (4.00-5.50); RED CELL DISTRIBUTION WIDTH 13.5 % (11.0-15.5); WHITE BLOOD COUNT (AUTO) 10.1 K/uL (4.8-10.8)
[2020-11-14 04:55] LABS: CREATININE 0.7 mg/dL (0.5-1.5); POTASSIUM 5.8 mmol/L (3.5-5.1)
[2020-11-14] MEDS: INSULIN HUMULIN R 100 UNIT/ML 3ML SQ SCH ×4 (06:04→21:07)
[2020-11-14] MEDS: GABAPENTIN 300 MG CAPSULE PO SCH ×2 (08:29→21:00)
[2020-11-14] MEDS: FLUCONAZOLE 400 MG/NS 200 ML 200 ML IV SCH (08:29)
[2020-11-14] MEDS: DIAZEPAM 5 MG TABLET PO SCH ×3 (08:30→21:00)
[2020-11-14] MEDS: RIFAXIMIN 550 MG TABLET PO SCH ×2 (08:30→21:00)
[2020-11-14] MEDS: FENOFIBRATE NANOCRYSTALLIZED 145 MG TAB PO SCH (08:30)
[2020-11-14] MEDS: LISINOPRIL 40 MG TABLET PO SCH (08:30)
[2020-11-14] MEDS: PANTOPRAZOLE 40 MG TAB DR PO SCH (08:30)
[2020-11-14] MEDS: SOLU-MEDROL 40MG VIAL IVP SCH ×2 (08:45→21:00)
[2020-11-14] MEDS: BALSAM PERU/CASTOR OIL 60 GM TUBE TP SCH ×3 (09:20→21:01)
[2020-11-14] MEDS: INSULIN GLARGINE 100 UNITS/ML 10 ML VIAL SQ SCH ×2 (09:21→21:09)
[2020-11-14] MEDS ORDERED: CALCIUM GLUC 1GM VIAL IV SCH (12:30)
[2020-11-14] MEDS ORDERED: CALCIUM GLUC 1GM VIAL 1 GM in 0.9%NACL 100ML 100 ML IV SCH (12:30)
[2020-11-14] MEDS ORDERED: SODIUM BICARB 50MEQ 50ML VIAL 50 ML ONE (13:34)
[2020-11-14] MEDS: SODIUM BICARB 50MEQ 50ML VIAL IV SCH (13:35)
[2020-11-14] MEDS: 0.9% NACL 250ML IVPB SCH (13:36)
[2020-11-14] MEDS: Escitalopram Oxalate 10 MG PO SCH (17:01)
[2020-11-14] MEDS: ZOLPIDEM TARTRATE 5 MG TAB PO PRN (21:00)
[2020-11-15] MEDS: ALBUTEROL INHALER 90MCG/INH IH SCH ×3 (01:32→21:40)
[2020-11-15 04:07] VITALS: BP 132/70
[2020-11-15 04:44] LABS: HEMATOCRIT 38.3 % (36-48); MEAN CORPUSCULAR HEMOGLOBIN 28.3 pg (27.0-33.0); MEAN CORPUSCULAR HGB CONC 32.6 g/dL (32.0-36.0); MEAN CORPUSCULAR VOLUME 86.8 fL (79-99); PLATELET COUNT (AUTO) 46 K/uL (130-400); RED BLOOD CELL COUNT(AUTO) 4.41 MIL/uL (4.00-5.50); RED CELL DISTRIBUTION WIDTH 13.7 % (11.0-15.5); WHITE BLOOD COUNT (AUTO) 13.7 K/uL (4.8-10.8)
[2020-11-15 04:53] LABS: CREATININE 0.7 mg/dL (0.5-1.5); POTASSIUM 5.6 mmol/L (3.5-5.1)
[2020-11-15 05:55] LABS: PLATELET MORPHOLOGY COMMENT LARGE PLTS PRESENT
[2020-11-15] MEDS: INSULIN HUMULIN R 100 UNIT/ML 3ML SQ SCH ×4 (06:28→21:41)
[2020-11-15 08:30] VITALS: BP 98/72
[2020-11-15] MEDS: BALSAM PERU/CASTOR OIL 60 GM TUBE TP SCH ×3 (09:00→21:21)
[2020-11-15] MEDS: INSULIN GLARGINE 100 UNITS/ML 10 ML VIAL SQ SCH ×2 (09:00→21:45)
[2020-11-15] MEDS: GABAPENTIN 300 MG CAPSULE PO SCH ×2 (11:07→21:21)
[2020-11-15] MEDS: BENZONATATE 100 MG CAPSULE PO PRN (11:08)
[2020-11-15] MEDS: DIAZEPAM 5 MG TABLET PO SCH ×3 (11:08→21:21)
[2020-11-15] MEDS: PANTOPRAZOLE 40 MG TAB DR PO SCH (11:08)
[2020-11-15] MEDS: FENOFIBRATE NANOCRYSTALLIZED 145 MG TAB PO SCH (11:08)
[2020-11-15] MEDS: LISINOPRIL 40 MG TABLET PO SCH (11:08)
[2020-11-15] MEDS: RIFAXIMIN 550 MG TABLET PO SCH ×2 (11:09→21:21)
[2020-11-15] MEDS: SOLU-MEDROL 40MG VIAL IVP SCH ×2 (11:09→21:20)
[2020-11-15] MEDS: SODIUM BICARB 50MEQ 50ML VIAL IV SCH (12:30)
[2020-11-15 12:52] VITALS: BP 130/62
[2020-11-15] MEDS: GUAIFENESIN-DM 200/20 MG 10 ML PO PRN (13:09)
[2020-11-15] MEDS: 0.9% NACL 250ML IVPB SCH (14:00)
[2020-11-15 16:49] VITALS: BP 123/69
[2020-11-15 19:45] VITALS: BP 132/62
[2020-11-15] MEDS: Escitalopram Oxalate 10 MG PO SCH (21:15)
[2020-11-15] MEDS: ZOLPIDEM TARTRATE 5 MG TAB PO PRN (21:21)
[2020-11-15 23:16] VITALS: BP 130/49
[2020-11-16] MEDS: ALBUTEROL INHALER 90MCG/INH IH SCH ×4 (01:25→20:46)
[2020-11-16 03:58] VITALS: BP 114/47
[2020-11-16 04:46] LABS: MEAN CORPUSCULAR HEMOGLOBIN 28.5 pg (27.0-33.0); MEAN CORPUSCULAR HGB CONC 32.1 g/dL (32.0-36.0); MEAN CORPUSCULAR VOLUME 88.8 fL (79-99); RED BLOOD CELL COUNT(AUTO) 4.28 MIL/uL (4.00-5.50); RED CELL DISTRIBUTION WIDTH 13.7 % (11.0-15.5)
[2020-11-16 05:06] LABS: CREATININE 0.9 mg/dL (0.5-1.5); POTASSIUM 5.7 mmol/L (3.5-5.1)
[2020-11-16] MEDS: INSULIN HUMULIN R 100 UNIT/ML 3ML SQ SCH ×4 (06:05→20:43)
[2020-11-16] MEDS ORDERED: SODIUM BICARB 50MEQ 50ML VIAL IV SCH (07:30)
[2020-11-16] MEDS ORDERED: CALCIUM GLUC 1GM VIAL IV SCH (07:30)
[2020-11-16] MEDS ORDERED: CALCIUM GLUC 1GM VIAL 1 GM in 0.9%NACL 100ML 100 ML IV SCH (07:30)
[2020-11-16 08:01] VITALS: BP 123/57
[2020-11-16] MEDS: SOLU-MEDROL 40MG VIAL IVP SCH ×2 (08:21→20:43)
[2020-11-16] MEDS: KAYEXALATE 15GM/60ML PO SCH (08:21)
[2020-11-16] MEDS: INSULIN GLARGINE 100 UNITS/ML 10 ML VIAL SQ SCH ×2 (08:23→20:45)
[2020-11-16] MEDS: FENOFIBRATE NANOCRYSTALLIZED 145 MG TAB PO SCH (08:24)
[2020-11-16] MEDS: LISINOPRIL 40 MG TABLET PO SCH (08:24)
[2020-11-16] MEDS: RIFAXIMIN 550 MG TABLET PO SCH ×2 (08:24→20:43)
[2020-11-16] MEDS: PANTOPRAZOLE 40 MG TAB DR PO SCH (08:24)
[2020-11-16] MEDS: DIAZEPAM 5 MG TABLET PO SCH ×3 (08:25→20:44)
[2020-11-16] MEDS: GABAPENTIN 300 MG CAPSULE PO SCH ×2 (08:25→20:44)
[2020-11-16] MEDS: BALSAM PERU/CASTOR OIL 60 GM TUBE TP SCH ×3 (08:25→20:45)
[2020-11-16 11:32] VITALS: BP 122/69
[2020-11-16] MEDS: GUAIFENESIN-DM 200/20 MG 10 ML PO PRN (11:37)
[2020-11-16] MEDS: SODIUM BICARB 50MEQ 50ML VIAL IV SCH (12:30)
[2020-11-16] MEDS: 0.9% NACL 250ML IVPB SCH (14:00)
[2020-11-16 15:48] VITALS: BP 133/66
[2020-11-16] MEDS: Escitalopram Oxalate 10 MG PO SCH (17:08)
[2020-11-16 19:50] VITALS: BP 137/67
[2020-11-16 23:20] VITALS: BP 119/69
[2020-11-17 03:25] VITALS: BP 121/67
[2020-11-17 04:21] LABS: HEMATOCRIT 37.8 % (36-48); MEAN CORPUSCULAR HEMOGLOBIN 28.5 pg (27.0-33.0); MEAN CORPUSCULAR VOLUME 89.2 fL (79-99); RED BLOOD CELL COUNT(AUTO) 4.24 MIL/uL (4.00-5.50); RED CELL DISTRIBUTION WIDTH 13.9 % (11.0-15.5); WHITE BLOOD COUNT (AUTO) 12.4 K/uL (4.8-10.8)
[2020-11-17 04:23] LABS: CREATININE 0.8 mg/dL (0.5-1.5); POTASSIUM 5.7 mmol/L (3.5-5.1)
[2020-11-17] MEDS: INSULIN HUMULIN R 100 UNIT/ML 3ML SQ SCH ×3 (05:42→16:30)
[2020-11-17] MEDS ORDERED: CALCIUM GLUC 1GM VIAL 1 GM in 0.9%NACL 100ML 100 ML IV SCH ×2 (07:30→08:00)
[2020-11-17 07:47] VITALS: BP 144/58
[2020-11-17] MEDS ORDERED: ALBUTEROL 0.042% 1.25MG/3ML IH SCH (08:00)
[2020-11-17] MEDS ORDERED: KAYEXALATE 15GM/60ML PO ONE (08:00)
[2020-11-17] MEDS ORDERED: SODIUM BICARB 50MEQ 50ML VIAL IV ONE (08:00)
[2020-11-17] MEDS ORDERED: FUROSEMIDE 40MG VIAL IV ONE (08:00)
[2020-11-17] MEDS ORDERED: SODIUM BICARB 50MEQ 50ML VIAL IV SCH (08:00)
[2020-11-17] MEDS ORDERED: CALCIUM GLUC 1GM VIAL IV SCH (08:00)
[2020-11-17] MEDS ORDERED: KAYEXALATE 15GM/60ML PO SCH (08:00)
[2020-11-17] MEDS ORDERED: INSULIN HUMULIN R 100 UNIT/ML 3ML IV SCH (08:00)
[2020-11-17] MEDS: KAYEXALATE 15GM/60ML PO SCH (08:57)
[2020-11-17] MEDS: PANTOPRAZOLE 40 MG TAB DR PO SCH (08:57)
[2020-11-17] MEDS: RIFAXIMIN 550 MG TABLET PO SCH (08:57)
[2020-11-17] MEDS: GABAPENTIN 300 MG CAPSULE PO SCH (08:57)
[2020-11-17] MEDS: FENOFIBRATE NANOCRYSTALLIZED 145 MG TAB PO SCH (08:57)
[2020-11-17] MEDS: LISINOPRIL 40 MG TABLET PO SCH (08:58)
[2020-11-17] MEDS: SOLU-MEDROL 40MG VIAL IVP SCH (08:58)
[2020-11-17] MEDS: DIAZEPAM 5 MG TABLET PO SCH ×2 (08:58→14:58)
[2020-11-17] MEDS: ALBUTEROL INHALER 90MCG/INH IH SCH ×2 (08:59→14:58)
[2020-11-17] MEDS: INSULIN GLARGINE 100 UNITS/ML 10 ML VIAL SQ SCH (09:15)
[2020-11-17] MEDS: BALSAM PERU/CASTOR OIL 60 GM TUBE TP SCH ×2 (09:15→14:58)
[2020-11-17 11:52] VITALS: BP 128/69
[2020-11-17] MEDS: 0.9% NACL 250ML IVPB SCH (14:00)
[2020-11-17 16:21] VITALS: BP 119/65
[2020-11-17] MEDS: Escitalopram Oxalate 10 MG PO SCH (16:30)
[2020-11-18] MEDS ORDERED: DEXTROSE 50%-WATER 50 ML DISP.SYRIN IV ONE (08:00)
== END 2020-11-17 18:31 | DRG 177 ==
LOC: EDH 13:09 → EDHIP 10-27 05:08 → OBSVTOIN 10-27 05:08 → 4AH 10-27 20:36 → 2AH 10-29 20:14 → 4AH 11-09 15:37 → 2AH 11-11 14:20
PROVIDERS: ADMIT Internal Medicine Critical Care Medicine; ATTEND Internal Medicine Critical Care Medicine
PROC: XW033E5 Introduction of Remdesivir Anti-infective into Peripheral Vein, Percutaneous Approach, New Technology Group 5 (ICD-10-PCS; principal; 2020-10-27)
PROC: 5A0935A Assistance with Respiratory Ventilation, Less than 24 Consecutive Hours, High Flow/Velocity Cannula (ICD-10-PCS; 2020-10-27)
PROC: XW0DXM6 Introduction of Baricitinib into Mouth and Pharynx, External Approach, New Technology Group 6 (ICD-10-PCS; 2020-10-28)
PROC: 5A0935A Assistance with Respiratory Ventilation, Less than 24 Consecutive Hours, High Flow/Velocity Cannula (ICD-10-PCS; 2020-10-28)
PROC: 5A09357 Assistance with Respiratory Ventilation, Less than 24 Consecutive Hours, Continuous Positive Airway Pressure (ICD-10-PCS; 2020-10-29)
PROC: 5A0935A Assistance with Respiratory Ventilation, Less than 24 Consecutive Hours, High Flow/Velocity Cannula (ICD-10-PCS; 2020-10-29)
PROC: 5A09357 Assistance with Respiratory Ventilation, Less than 24 Consecutive Hours, Continuous Positive Airway Pressure (ICD-10-PCS; 2020-10-30)
PROC: 5A09357 Assistance with Respiratory Ventilation, Less than 24 Consecutive Hours, Continuous Positive Airway Pressure (ICD-10-PCS; 2020-10-31)
PROC: 5A09357 Assistance with Respiratory Ventilation, Less than 24 Consecutive Hours, Continuous Positive Airway Pressure (ICD-10-PCS; 2020-11-01)
PROC: 5A0935A Assistance with Respiratory Ventilation, Less than 24 Consecutive Hours, High Flow/Velocity Cannula (ICD-10-PCS; 2020-11-06)
PROC: 5A0935A Assistance with Respiratory Ventilation, Less than 24 Consecutive Hours, High Flow/Velocity Cannula (ICD-10-PCS; 2020-11-15)
PROC: 5A0935A Assistance with Respiratory Ventilation, Less than 24 Consecutive Hours, High Flow/Velocity Cannula (ICD-10-PCS; 2020-11-16)
PROC: 5A0935A Assistance with Respiratory Ventilation, Less than 24 Consecutive Hours, High Flow/Velocity Cannula (ICD-10-PCS; 2020-11-17)
DX: U07.1 COVID-19 (principal); J80 Acute respiratory distress syndrome; G93.41 Metabolic encephalopathy; E43 Unspecified severe protein-calorie malnutrition; J12.82 Pneumonia due to coronavirus disease 2019; D84.9 Immunodeficiency, unspecified; E87.1 Hypo-osmolality and hyponatremia; K74.60 Unspecified cirrhosis of liver; D69.6 Thrombocytopenia, unspecified; E87.5 Hyperkalemia; F32.9 Major depressive disorder, single episode, unspecified; F41.9 Anxiety disorder, unspecified; N18.9 Chronic kidney disease, unspecified; E11.22 Type 2 diabetes mellitus with diabetic chronic kidney disease; I13.10 Hypertensive heart and chronic kidney disease without heart failure, with stage 1 through stage 4 chronic kidney disease, or unspecified chronic kidney disease; S30.810A Abrasion of lower back and pelvis, initial encounter; X58.XXXA Exposure to other specified factors, initial encounter; L85.3 Xerosis cutis; Z68.28 Body mass index [BMI] 28.0-28.9, adult; Y93.89 Activity, other specified; Y92.89 Other specified places as the place of occurrence of the external cause; Y99.8 Other external cause status
CPT/HCPCS: 36415; 36600; 71045; 80048; 80053; 81001; 82140; 82435; 82550; 82728; 82803; 82947; 82948; 83036; 83605; 83615; 83735; 83874; 83880; 84100; 84132; 84145; 84295; 84484; 85018; 85025; 85027; 85378; 86140; 86850; 86900; 86901; 87635; 87804; 93005; 94660; 97039; G0378; J0456; J0610; J1450; J1650; J1815; J1940; J1956; J2920; J2930; J3490; J7050